=== PATIENT | female | born 1990 | race Caucasian/White ===

== ENCOUNTER 2018-10-13 12:22 | Outpatient (REF) | payer MEDICAID, SELFPAY ==
--- NOTE | 2018-10-13 10:00 | PAPFT_PTH ---
PATIENT: CARIN LAW LOC: [facility] U#:[id number] AGE/SX: 28/F ROOM: RE10/13/[address]: Jillian Torres : 1990 BED: DIS: 10/13/2018 SPEC #: [id number] RECD: 10/14/18 12:55 STATUS: JAMESON RELouann #: [id number] SEBAS: 10/13/18 10:[address]: Jillian Torres DEPT[facility] Cytology RECD BY: Vanesa Brandon ENTERED: 10/14/18 12:55 SP TYPE: PAPFT OTHR DR: Fanta Tejeda Tissues: 1 - CX/ENDOCX FOR PAP SMEARS Procedures: PAP THIN PREP/[facility] Screening Comments: [id number]
== END 2018-10-13 12:42 ==
LOC: NCHCN 12:22
PROVIDERS: PCP Nurse Practitioner Family; Visit Provider Family Medicine
DX: Z12.4 Encounter for screening for malignant neoplasm of cervix (principal)
CPT/HCPCS: 88142